=== PATIENT | male | born 1965 | race Native Hawaiian/Other Pacific Islander ===

== ENCOUNTER 2018-01-01 18:38 | Emergency (ER) | payer OTHER ==
[~2018-01-01] VITALS: Ht 177.8 cm; Wt 104.3 kg
[2018-01-01] MEDS ORDERED: REMERON SLTB45 MG OR (19:28)
[2018-01-01] MEDS ORDERED: LISI20TA11 PO (19:28)
[2018-01-01] MEDS ORDERED: ATEN50TA36 PO (19:28)
[2018-01-01] MEDS ORDERED: BUPROPN HCL300 MG PO (19:29)
[2018-01-01 22:58] VITALS: BP 142/98; TEMP 98.6
== END 2018-01-01 22:59 | disposition home or self-care (01) ==
LOC: ED 18:38
DX: S42.025A Nondisplaced fracture of shaft of left clavicle, initial encounter for closed fracture (principal); I10 Essential (primary) hypertension; W01.0XXA Fall on same level from slipping, tripping and stumbling without subsequent striking against object, initial encounter; Y92.098 Other place in other non-institutional residence as the place of occurrence of the external cause
CPT/HCPCS: 99283

== ENCOUNTER 2021-07-08 09:36 | Outpatient (CLI) | payer OTHER ==
[~2021-07-08 09:36] MED LIST: ATEN50TA36 PO; BUPROPN HCL300 MG PO; LISI20TA11 PO; REMERON SLTB45 MG OR
== END 2021-07-08 21:58 | disposition home or self-care (01) ==
LOC: LABW 09:36
PROVIDERS: ATTEND Psychiatry & Neurology Psychiatry
DX: Z79.899 Other long term (current) drug therapy (principal)
CPT/HCPCS: 36415; 82947; 84478

== ENCOUNTER 2021-12-26 14:47 | Emergency (ER) | payer OTHER ==
[~2021-12-26] VITALS: Ht 177.8 cm; Wt 80.3 kg
[2021-12-26 15:24] LABS: PLATELET COUNT 328 K/uL (142-355)
[2021-12-26 15:29] LABS: POTASSIUM 4.4 mmol/L (3.6-5.2)
[2021-12-26 15:42] LABS: PARTIAL THROMBOPLASTIN TIME 28.5 SECONDS (24.5-33.6)
[2021-12-26 16:26] VITALS: BP 161/93; TEMP 98
== END 2021-12-26 16:26 ==
LOC: ED 14:47
PROVIDERS: Hospitalist
DX: I16.0 Hypertensive urgency (principal); F17.210 Nicotine dependence, cigarettes, uncomplicated
CPT/HCPCS: 36415; 80053; 82550; 83880; 84484; 85027; 85610; 85730; 93005; 96372; 96374; 99284; J0360; J1885; J2405

== ENCOUNTER 2022-03-23 16:15 | Emergency (ER) | payer OTHER ==
[~2022-03-23] VITALS: Ht 177.8 cm; Wt 80.3 kg
[2022-03-23 19:20] VITALS: BP 116/63; TEMP 98.1
== END 2022-03-23 19:30 | disposition home or self-care (01) ==
LOC: ED 16:15
DX: I95.89 Other hypotension (principal)
CPT/HCPCS: 96360; 99284